=== PATIENT | female | born 1985 | race Caucasian/White ===

== ENCOUNTER → 2021-02-22 | Outpatient (CLI) | payer BC ==
--- NOTE | 2021-02-22 09:17 | Diagnostic Imaging Report ---
EXAMINATION: US Abdomen limited. TECHNIQUE: Multiple real-time grayscale images were obtained over the right upper quadrant in various projections. HISTORY: RUQ PAIN COMPARISON: None available. FINDINGS: Pancreas: The visualized portions of the pancreas are normal. Liver: The liver is normal in echogenicity and contour. No focal lesions are seen. The portal vein is patent with hepatopetal flow. Gallbladder and biliary tree: Gallbladder is normal without wall thickening, pericholecystic fluid, or sonographic Li sign. There is no biliary ductal dilation. The common duct measures 0.3 cm. Right kidney: The right kidney is normal without hydronephrosis. Aorta and IVC: The visualized aorta and inferior vena cava are normal. Fluid: No ascites is seen. IMPRESSION: 1. Unremarkable right upper quadrant ultrasound. Dictated by: Dictated on workstation # [id number]
== END ==
LOC: RAD 07:00
PROVIDERS: ATTEND Physician Assistant
DX: R10.11 Right upper quadrant pain (principal)
CPT/HCPCS: 76705

== ENCOUNTER → 2021-05-01 | Outpatient (CLI) | payer BC ==
--- NOTE | 2021-05-01 11:41 | Diagnostic Imaging Report ---
INDICATION: Lumbago, paresthesias. COMPARISON: None available. TECHNIQUE: Three radiographs of the lumbar spine dated 05/01/2021. FINDINGS: Five lumbar-type vertebral bodies are present. Small riblets are noted on T12. Alignment of the lumbar spine is well maintained without significant anterolisthesis or retrolisthesis. Vertebral body heights are well maintained. Minimal disc space height loss at L5/S1. No severe disc space height loss. The sacroiliac joints are intact. No acute fracture or dislocation. No suspicious radiopaque foreign body. IMPRESSION: No acute osseous abnormality with very minimal degenerative changes present. Dictated by: Dictated on workstation # [id number]
== END ==
LOC: RAD 11:06
PROVIDERS: ATTEND Nurse Practitioner Family
DX: M54.42 Lumbago with sciatica, left side (principal); I10 Essential (primary) hypertension; R20.2 Paresthesia of skin
CPT/HCPCS: 72100

== ENCOUNTER → 2021-05-10 | Outpatient (CLI) | payer BC ==
--- NOTE | 2021-05-10 14:48 | Diagnostic Imaging Report ---
PROCEDURE: MRI lumbar spine. TECHNIQUE: Multiplanar, multisequence MRI of the lumbar spine was performed without contrast. DATE: May 10, 2021. COMPARISON: Lumbar spine radiographs May 01, 2021. INDICATION: 35-year-old female, chronic low back pain. FINDINGS: The alignment of the lumbar spine is grossly unremarkable. There is no evidence of a diffuse marrow infiltrating or replacing process. There is no focal concerning bone lesion. There is no compression deformity or fracture. The visualized cord and conus medullaris is unremarkable and terminates at the L1 level. The disc heights are well preserved. L1-L2: There is no disc bulge. The facet joints and ligamentum flavum are unremarkable. There is no foraminal narrowing. There is no spinal canal stenosis. L2-L3: There is no disc bulge. The facet joints and ligamentum flavum are unremarkable. There is no foraminal narrowing. There is no spinal canal stenosis. L3-L4: There is no disc bulge. The facet joints and ligamentum flavum are unremarkable. There is no foraminal narrowing. There is no spinal canal stenosis. L4-L5: There is a very small posterior disc protrusion without identified nerve root contact. The facet joints and ligamentum flavum are unremarkable. There is no foraminal narrowing. There is no spinal canal stenosis. L5-S1: There is no disc bulge. The facet joints and ligamentum flavum are unremarkable. There is no foraminal narrowing. There is no spinal canal stenosis. IMPRESSION: 1. L4-L5 very small posterior disc protrusion without nerve root contact, foraminal stenosis, or spinal stenosis. 2. No compression deformity, fracture, or concerning focal bone lesion. Dictated by: Dictated on workstation # [id number]
== END ==
LOC: RAD 13:15
PROVIDERS: ATTEND Nurse Practitioner Family
DX: M51.26 Other intervertebral disc displacement, lumbar region (principal); M48.061 Spinal stenosis, lumbar region without neurogenic claudication; I10 Essential (primary) hypertension
CPT/HCPCS: 72148

== ENCOUNTER → 2021-10-19 | Outpatient (CLI) | payer BC ==
--- NOTE | 2021-10-19 15:29 | Diagnostic Imaging Report ---
INDICATION: patient, size and dates discrepancy. TECHNIQUE: OB sonography performed in the routine fashion with transabdominal and transvaginal views. FINDINGS: A single live intrauterine fetus is seen measuring 7 weeks 0 days by crown-rump length. Uterus measured 10.6 x 5.4 x 6.8 cm. The right ovary measured 3.0 x 1.8 x 3.4 cm and appeared normal. The left ovary measured 3.4 x 1.5 x 2.1 cm and appeared normal. heart rate was difficult to measure due to early dates but appeared to be about 90 BPM. A small 1.4 x 1.2 x 2.8 cm subchorionic hemorrhage is seen adjacent to the gestational sac. There was no free fluid in the adnexal region. IMPRESSION: Single live intrauterine fetus measuring 7 weeks 0 days in size. A small subchorionic hemorrhage was seen. Suggest follow-up as clinically warranted. There is no adnexal lesion or free fluid. Dictated by: Dictated on workstation # [id number]
== END ==
LOC: RAD 12:00
PROVIDERS: ATTEND Obstetrics & Gynecology
DX: O26.841 Uterine size-date discrepancy, first trimester (principal); Z3A.01 Less than 8 weeks gestation of pregnancy
CPT/HCPCS: 76801; 76817

== ENCOUNTER → 2021-10-26 | Outpatient (CLI) | payer BC ==
--- NOTE | 2021-10-26 15:58 | Diagnostic Imaging Report ---
INDICATION: Unsure dates. COMPARISON: Correlation is made with recent ultrasound from 10/19/2021. FINDINGS: There is an intrauterine gestational sac containing a pole, consistent with approximately 7 weeks 0 days gestation. No heart motion is identified, suggestive of embryonic demise. Area of subchorionic hemorrhage is again noted. Adnexa are unremarkable. No adnexal mass or free fluid is detected. IMPRESSION: Features suggestive of 7 weeks 0 day intrauterine embryonic demise with small subchorionic hemorrhage. Dictated by: Dictated on workstation # [id number]
== END ==
LOC: RAD 13:53
PROVIDERS: ATTEND Obstetrics & Gynecology
DX: O26.841 Uterine size-date discrepancy, first trimester (principal); Z3A.00 Weeks of gestation of pregnancy not specified
CPT/HCPCS: 76801; 76817

== ENCOUNTER → 2023-01-14 | Outpatient (CLI) | payer BC ==
--- NOTE | 2023-01-14 17:42 | Diagnostic Imaging Report ---
INDICATION: survey. TECHNIQUE: Multiple real-time grayscale images were obtained over the gravid uterus. COMPARISON: None. FINDINGS: There is a single live fetus in a variable presentation. heart rate was recorded at 149 BPM. Placenta is anterior and to the right. No previa is detected. Amniotic fluid index is 14.3 cm. survey demonstrates kidneys, bladder and stomach to be unremarkable. brain is unremarkable. There is a four-chamber heart. There is a three-vessel cord with normal insertion. spine is unremarkable. Maternal adnexa was not evaluated. Biometrical measurements are as follows: Biparietal 4.92 cm, age 21 weeks 0 days. Head circumference 18.28 cm, age 20 weeks 5 days. Abdominal circumference 14.74 cm, age 20 weeks 1 days. Femur length 3.46 cm, age 21 weeks 0 days. Sonographic estimate age: 20 weeks 5 days. Sonographic estimated date of delivery: 05/29/2023. Estimated Weight: 356 gm (+/- 52 gm). LMP percentile: 32%. heart rate: 149 beats per minute. number: 1 of 1. IMPRESSION: Single live IUP of 20 weeks 5 days gestational age. Estimated date of confinement sonographically is 05/29/2023. Dictated by: Dictated on workstation # [id number]
== END ==
LOC: RAD 09:56
PROVIDERS: ATTEND Nurse Practitioner Women's Health
DX: Z34.92 Encounter for supervision of normal pregnancy, unspecified, second trimester (principal); Z3A.20 20 weeks gestation of pregnancy
CPT/HCPCS: 76805

== ENCOUNTER → 2023-04-18 | Outpatient (CLI) | payer BC | LOC: LABNPT 13:26 | PROVIDERS: ATTEND Nurse Practitioner Women's Health | DX: O13.9 Gestational [pregnancy-induced] hypertension without significant proteinuria, unspecified trimester (principal) | CPT/HCPCS: 82570; 84156 ==